=== PATIENT | male | born 1930 | race Caucasian/White ===

== ENCOUNTER 2021-03-06 10:15 | Emergency (ER) | payer MEDICARE, OTHER ==
[2021-03-06 10:39] LABS: HEMOGLOBIN 13.2 gm/dl (14.0-17.5); RED BLOOD COUNT 4.31 M/UL (4.20-5.50); WHITE BLOOD COUNT 5.7 K/UL (4.5-11.0)
[2021-03-06 11:08] LABS: BUN/CREATININE RATIO 20 (0-10)
== END 2021-03-06 16:05 | disposition home or self-care (01) ==
LOC: ER1 10:15
PROVIDERS: Emergency Medicine
DX: R91.1 Solitary pulmonary nodule (principal); R06.02 Shortness of breath; R79.89 Other specified abnormal findings of blood chemistry; R53.83 Other fatigue; Z20.822 Contact with and (suspected) exposure to COVID-19; I10 Essential (primary) hypertension; K83.8 Other specified diseases of biliary tract; Z90.89 Acquired absence of other organs
CPT/HCPCS: 70450; 71045; 80053; 81001; 82550; 82553; 83874; 83880; 84484; 85025; 85379; 93005; 99285; J7040; J7050; Q9967; U0002

== ENCOUNTER 2022-01-14 11:02 | Emergency (ER) | payer MEDICARE, OTHER ==
[2022-01-14 13:43] LABS: HEMOGLOBIN 12.4 gm/dl (14.0-17.5); RED BLOOD COUNT 4.08 M/UL (4.20-5.50); WHITE BLOOD COUNT 8.4 K/UL (4.5-11.0)
[2022-01-14] MEDS ORDERED: MACROBID 100 M100 MG PO (15:06)
== END 2022-01-14 15:40 | disposition home or self-care (01) ==
LOC: ER1 11:02
PROVIDERS: Nurse Practitioner
DX: N39.0 Urinary tract infection, site not specified (principal); R33.9 Retention of urine, unspecified; I10 Essential (primary) hypertension; Z85.46 Personal history of malignant neoplasm of prostate; Z88.8 Allergy status to other drugs, medicaments and biological substances
CPT/HCPCS: 51702; 80053; 81001; 85025; 87077; 87086; 87186; 99283